=== PATIENT | male | born 1960 ===

== ENCOUNTER 2025-02-24 08:30 | Day surgery (SDC) | payer OTHER ==
[2025-02-24] MEDS ORDERED: fentaNYL CITRATE 50 MCG/ML AMPUL IV PUSH ONE (14:15)
[2025-02-24] MEDS ORDERED: MIDAZOLAM HCL 2 MG/2 ML VIAL IV ONE (14:15)
[2025-02-24] MEDS ORDERED: DIPHENHYDRAMINE HCL 50 MG/ML VIAL 1ML IV ONE (14:15)
== END 2025-02-24 15:40 | disposition home or self-care (01) ==
LOC: AMB-ENDOS 08:30
PROVIDERS: ATTEND Internal Medicine
DX: D12.0 Benign neoplasm of cecum (principal); K63.5 Polyp of colon; K57.30 Diverticulosis of large intestine without perforation or abscess without bleeding